=== PATIENT | male | born 1975 | race Caucasian/White ===

== ENCOUNTER 2018-01-11 14:44 | Emergency (ER) | payer MEDICAID ==
[~2018-01-11] VITALS: Ht 185.4 cm; Wt 54.0 kg
[~2018-01-11 14:44] MED LIST: CLON-527 PO; COU5T PO; DICY10CA88 PO; DOXE50CA4 PO; GABA300C PO; HYDR-4353 PO; LEVA15HF4 IH; MONT10TA21 PO; PANT-47 PO; PHEN100C12 PO; PROC-8 PO
[2018-01-11 15:09] VITALS: BP 128/96
[2018-01-11 15:37] LABS: BASOPHILS % (AUTO) 1.1 % (0-1); EOSINOPHILS # (AUTO) 0.1 X10'3 (0-0.9); EOSINOPHILS % (AUTO) 1.6 % (0-6); HEMATOCRIT 43.9 % (42.0-52.0); HEMOGLOBIN 14.8 g/dl (14.0-17.9); LYMPHOCYTES # (AUTO) 1.6 X10'3 (1.1-4.8); LYMPHOCYTES % (AUTO) 44.1 % (21-51); MEAN CORPUSCULAR HEMOGLOBIN 32.7 PG (27.0-31.0); MEAN CORPUSCULAR HGB CONC 33.8 % (33.0-36.5); MEAN CORPUSCULAR VOLUME 96.8 FL (78-98); MEAN PLATELET VOLUME 7.9 FL (7.4-10.4); MONOCYTES # (AUTO) 0.3 X10'3 (0-0.9); MONOCYTES % (AUTO) 8.6 % (2-12); NEUTROPHILS # (AUTO) 1.6 X10'3 (1.8-7.7); NEUTROPHILS % (AUTO) 44.6 % (42-75); PLATELET COUNT 78 X10'3 (140-440); RED BLOOD COUNT 4.54 X10'6 (4.70-6.10); RED CELL DISTRIBUTION WIDTH 12.6 % (11.5-14.5); WHITE BLOOD COUNT 3.6 X10'3 (4.5-11.0)
[2018-01-11 15:41] LABS: CLARITY,URINE CLEAR (Clear); COLOR,URINE YELLOW (Yellow); GLUCOSE, URINE NEGATIVE (Neg); KETONES,URINE TRACE mg/dl (Neg); LEUKOCYTE ESTERASE ,URINE NEGATIVE (Neg); NITRITES, URINE NEGATIVE (Neg); OCCULT BLOOD,URINE NEGATIVE (Neg); PH,URINE 5.5 (4.8-8.0); PROTEIN,URINE TRACE mg/dl (Neg); UA COLLECTION TYPE CLN CATCH MIDSTREAM; UROBILINOGEN,URINE 0.2 E.U/dL (0.2-1.0)
[2018-01-11 15:52] LABS: ALANINE AMINOTRANSFERASE 76 U/L (12-78); ALBUMIN 3.7 G/DL (3.4-5.0); ALBUMIN/GLOBULIN RATIO 0.8 (1.1-1.5); ALKALINE PHOSPHATASE 98 IU/L (46-116); ANION GAP 12 (8-16); ASPARTATE AMINO TRANSFERASE 217 U/L (10-37); BILIRUBIN,TOTAL 0.4 MG/DL (0.1-1.0); BLOOD UREA NITROGEN 3 MG/DL (7-18); CALCIUM 8.3 MG/DL (8.5-10.1); CHLORIDE 97 MMOL/L (99-107); GLUCOSE 92 MG/DL (70-104); POTASSIUM 4.1 MMOL/L (3.5-5.1); SODIUM 135 MMOL/L (135-145); TOTAL CARBON DIOXIDE 25.7 MMOL/L (24-32); TOTAL PROTEIN 8.2 G/DL (6.4-8.2)
[2018-01-11 15:53] LABS: URINE AMPHETAMINE SCREEN NEGATIVE (Neg); URINE BARBITUATE SCREEN NEGATIVE (Neg); URINE BENZODIAZEPINES SCREEN NEGATIVE (Neg); URINE CANNABINOID SCREEN POSITIVE (Neg); URINE COCAINE SCREEN NEGATIVE (Neg); URINE METHADONE SCREEN NEGATIVE (Neg); URINE OPIATE SCREEN NEGATIVE (Neg); URINE PHENCYCLIDINE SCREEN NEGATIVE (Neg)
[2018-01-11 15:55] LABS: TROPONIN I < 0.04 NG/ML (0.0-0.05)
[2018-01-11 16:02] LABS: BACTERIA,URINE NONE SEEN /HPF (Neg); MUCUS STRANDS FEW /LPF (Neg); RBC,URINE NONE SEEN /HPF (0-2); SQUAMOUS EPITHELIAL CELL,UR NONE SEEN /LPF (FEW); WBC,URINE NONE SEEN /HPF (0-4)
[2018-01-11 16:06] LABS: BUN/CREATININE RATIO 4.5 (5.4-32.0); CREATININE 0.66 MG/DL (0.60-1.10); eGFR > 90 ML/MIN
[2018-01-11] MEDS ORDERED: iohexol 300mg/ml 100ml inj. ONE (16:09)
[2018-01-11 16:24] LABS: TOTAL CELLS COUNTED 100
[2018-01-11 16:25] LABS: PLATELET ESTIMATE DECREASED; TOXIC GRANULATION 1+
== END 2018-01-11 17:22 | disposition home or self-care (01) ==
LOC: ER 14:44
DX: S30.1XXA Contusion of abdominal wall, initial encounter (principal); S20.212A Contusion of left front wall of thorax, initial encounter; M25.551 Pain in right hip; G89.29 Other chronic pain; F12.90 Cannabis use, unspecified, uncomplicated; Z91.018 Allergy to other foods; Z79.899 Other long term (current) drug therapy; Z79.02 Long term (current) use of antithrombotics/antiplatelets; X58.XXXA Exposure to other specified factors, initial encounter; Y93.89 Activity, other specified; Y92.89 Other specified places as the place of occurrence of the external cause; Y99.8 Other external cause status
CPT/HCPCS: 36415; 71045; 71260; 73502; 74177; 80053; 80305; 80320; 81001; 84484; 85007; 85025; 99285; Q9967

== ENCOUNTER 2018-04-17 14:50 | Emergency (ER) | payer MEDICAID ==
[~2018-04-17] VITALS: Ht 177.8 cm; Wt 54.0 kg
[2018-04-17] MEDS ORDERED: normal saline 1000ML IV soln IVB ONE (15:15)
[2018-04-17] MEDS ORDERED: ipratropium/albuterol 3ml nebule NEB ONE (15:15)
[2018-04-17] MEDS ORDERED: methylPREDNISolone sod succ 125mg/2ml vial IV ONE (15:15)
[2018-04-17 16:07] LABS: BASOPHILS # (AUTO) 0.1 X10'3 (0-0.2); BASOPHILS % (AUTO) 1.7 % (0-1); EOSINOPHILS # (AUTO) 0.1 X10'3 (0-0.9); EOSINOPHILS % (AUTO) 2.4 % (0-6); HEMATOCRIT 42.7 % (42.0-52.0); HEMOGLOBIN 14.5 g/dl (14.0-17.9); LYMPHOCYTES # (AUTO) 1.5 X10'3 (1.1-4.8); LYMPHOCYTES % (AUTO) 44.9 % (21-51); MEAN CORPUSCULAR HEMOGLOBIN 32.2 PG (27.0-31.0); MEAN CORPUSCULAR VOLUME 94.8 FL (78-98); MEAN PLATELET VOLUME 8.5 FL (7.4-10.4); MONOCYTES # (AUTO) 0.5 X10'3 (0-0.9); MONOCYTES % (AUTO) 15.2 % (2-12); NEUTROPHILS # (AUTO) 1.2 X10'3 (1.8-7.7); NEUTROPHILS % (AUTO) 35.8 % (42-75); PLATELET COUNT 73 X10'3 (140-440); RED BLOOD COUNT 4.51 X10'6 (4.70-6.10); RED CELL DISTRIBUTION WIDTH 13.2 % (11.5-14.5); WHITE BLOOD COUNT 3.3 X10'3 (4.5-11.0)
[2018-04-17 17:22] LABS: ALANINE AMINOTRANSFERASE 44 U/L (12-78); ALBUMIN 3.5 G/DL (3.4-5.0); ALBUMIN/GLOBULIN RATIO 0.7 (1.1-1.5); ALKALINE PHOSPHATASE 115 IU/L (46-116); ANION GAP 16 (8-16); ASPARTATE AMINO TRANSFERASE 117 U/L (10-37); BILIRUBIN,TOTAL 0.6 MG/DL (0.1-1.0); BLOOD UREA NITROGEN 3 MG/DL (7-18); BUN/CREATININE RATIO 5.3 (5.4-32.0); CALCIUM 8.6 MG/DL (8.5-10.1); CHLORIDE 96 MMOL/L (99-107); CREATININE 0.57 MG/DL (0.60-1.10); GLUCOSE 85 MG/DL (70-104); POTASSIUM 4.2 MMOL/L (3.5-5.1); SODIUM 136 MMOL/L (135-145); TOTAL CARBON DIOXIDE 23.7 MMOL/L (24-32); TOTAL PROTEIN 8.3 G/DL (6.4-8.2); eGFR > 90 ML/MIN
[2018-04-17] MEDS ORDERED: PRED20TA PO (19:00)
[2018-04-17] MEDS ORDERED: AZIT250T2 PO (19:00)
[2018-04-17] MEDS ORDERED: TOBR5DRO2 EACHEYE (19:00)
[2018-04-17] MEDS ORDERED: ALBU6.7H INH (19:00)
[2018-04-17 19:18] VITALS: BP 119/63
== END 2018-04-17 19:20 | disposition home or self-care (01) ==
LOC: ER 14:51
DX: F10.920 Alcohol use, unspecified with intoxication, uncomplicated (principal); H10.9 Unspecified conjunctivitis; R05 Cough; R09.3 Abnormal sputum; G89.29 Other chronic pain; F17.200 Nicotine dependence, unspecified, uncomplicated; F12.90 Cannabis use, unspecified, uncomplicated
CPT/HCPCS: 36415; 71046; 80053; 84484; 85025; 99284

== ENCOUNTER 2018-04-27 23:01 | Inpatient (IN) | payer MEDICAID ==
[~2018-04-27] VITALS: Ht 182.9 cm; Wt 49.2 kg
[~2018-04-27 23:01] MED LIST changes: +ALBU6.7H INH; +LORazepam 2 mg/ml vial IV ONE; +TOBR5DRO2 EACHEYE
[2018-04-27] MEDS ORDERED: LORazepam 2 mg/ml vial IV ONE ×2 (23:10)
[2018-04-27] MEDS ORDERED: normal saline 1000ML IV soln IVB ONE ×2 (23:30)
--- NOTE | 2018-04-27 23:43 | NUR ---
pt attempted twice to urinate in urinal. attempts failed. spoke to dr gonsales about situation. order for straight cath received
[2018-04-27 23:50] LABS: ALANINE AMINOTRANSFERASE 56 U/L (12-78); ALBUMIN 3.5 G/DL (3.4-5.0); ALBUMIN/GLOBULIN RATIO 0.8 (1.1-1.5); ALKALINE PHOSPHATASE 110 IU/L (46-116); ANION GAP 23 (8-16); ASPARTATE AMINO TRANSFERASE 117 U/L (10-37); BILIRUBIN,TOTAL 1.2 MG/DL (0.1-1.0); BLOOD UREA NITROGEN 6 MG/DL (7-18); BUN/CREATININE RATIO 5.2 (5.4-32.0); CALCIUM 9.2 MG/DL (8.5-10.1); CHLORIDE 86 MMOL/L (99-107); CREATININE 1.15 MG/DL (0.60-1.10); ETHANOL < 0.010 GM/DL (0.0-0.010); GLUCOSE 182 MG/DL (70-104); PHENYTOIN (DILANTIN) 1.9 UG/ML (10.0-20.0); POTASSIUM 3.3 MMOL/L (3.5-5.1); SODIUM 125 MMOL/L (135-145); TOTAL CARBON DIOXIDE 15.6 MMOL/L (24-32); TOTAL PROTEIN 7.9 G/DL (6.4-8.2); eGFR 69 ML/MIN
--- NOTE | 2018-04-27 23:53 | NUR ---
DUE TO PTS CONTINUED AND PROLONGED ALOC, STRAIGHT CATH OBTAINED
[2018-04-28 00:09] LABS: BASOPHILS # (AUTO) 0.1 X10'3 (0-0.2); BASOPHILS % (AUTO) 0.6 % (0-1); EOSINOPHILS % (AUTO) 0.1 % (0-6); HEMATOCRIT 41.2 % (42.0-52.0); HEMOGLOBIN 13.3 g/dl (14.0-17.9); LYMPHOCYTES # (AUTO) 3.3 X10'3 (1.1-4.8); MEAN CORPUSCULAR HEMOGLOBIN 32.1 PG (27.0-31.0); MEAN CORPUSCULAR HGB CONC 32.4 g/dL (33.0-36.5); MEAN CORPUSCULAR VOLUME 99.2 FL (78-98); MEAN PLATELET VOLUME 10.2 FL (7.4-10.4); MONOCYTES # (AUTO) 2.1 X10'3 (0-0.9); MONOCYTES % (AUTO) 15.5 % (2-12); NEUTROPHILS # (AUTO) 8.3 X10'3 (1.8-7.7); NEUTROPHILS % (AUTO) 59.8 % (42-75); PLATELET COUNT 91 X10'3 (140-440); RED BLOOD COUNT 4.16 X10'6 (4.70-6.10); RED CELL DISTRIBUTION WIDTH 13.2 % (11.5-14.5); WHITE BLOOD COUNT 13.9 X10'3 (4.5-11.0)
[2018-04-28 00:18] LABS: URINE AMPHETAMINE SCREEN NEGATIVE (Neg); URINE BARBITUATE SCREEN NEGATIVE (Neg); URINE BENZODIAZEPINES SCREEN NEGATIVE (Neg); URINE CANNABINOID SCREEN NEGATIVE (Neg); URINE COCAINE SCREEN NEGATIVE (Neg); URINE METHADONE SCREEN NEGATIVE (Neg); URINE OPIATE SCREEN NEGATIVE (Neg); URINE PHENCYCLIDINE SCREEN NEGATIVE (Neg)
[2018-04-28] MEDS ORDERED: NORMAL SALINE IV ONE (01:05)
[2018-04-28] MEDS ORDERED: PHENYTOIN SOD IV ONE (01:05)
--- NOTE | 2018-04-28 01:53 | NUR ---
PT REFUSED TO URINATE IN URINAL AND SOILED HIS CLOTHES.
[2018-04-28] MEDS ORDERED: LORazepam 2 mg/ml vial IV STA ×2 (02:06→04:48)
--- NOTE | 2018-04-28 02:06 | NUR ---
DR DAVID REASSESSED PT. STILL ACTING INAPPROPRIATE AND NOT ANSWERING QUESTIONS APPROPRIATELY. VERBAL FOR ATIVAN 1MG RECEIVED
--- NOTE | 2018-04-28 02:54 | NUR ---
RIGHT AFTER CLEANING UP, AND CHANGING PT WHITH NEW LINEN AND CLOTHES. I WALKED IN TO SEE PT URINATING IN THE AIR TRYING TO CATCH URIN WITH URINAL.
[2018-04-28 02:57] LABS: PLATELET ESTIMATE DECREASED; TOTAL CELLS COUNTED 100
[2018-04-28 02:58] LABS: LARGE PLATELETS FEW
--- NOTE | 2018-04-28 03:21 | NUR ---
PT REFUSING VITALS, STATING "FUCK YOU GET OUT OF MY ROOM." SECURITY CALLED FOR STANDBY. PT GOT BACK INTO BED UNDER OWN POWER
--- NOTE | 2018-04-28 03:47 | NUR ---
PT FOUND WANDERING HIS ROOM WITH AN UNSTEADY GAIT. PT HAD PULLED OUT HIS THIRD IV AND WOULD NOT FOLLOW VRBAL CUES. VERBAL FROM DR DAVID TO RESTRAIN IF NEEDED. IV REINITIATED
--- NOTE | 2018-04-28 04:36 | NUR ---
SPOKE TO DR DAVID ABOUT INCREASING HR AND POSSIBLE NEED FOR PRN ATIVAN. STATED SHE NEEDS TO REEVALUATE PTS TONGUE DUE TO POSSIBLE AIRWAY ISSUES PRIOR TO THAT ORDER
[2018-04-28] MEDS ORDERED: metoprolol tartrate 1mg/ml inj IV ONE (06:05)
[2018-04-28] MEDS ORDERED: potassium Cl 40MEQ/NS 500ml 500 ML IV PRN ×2 (06:05)
[2018-04-28] MEDS ORDERED: acetaminophen 325mg tablet PO PRN ×2 (06:05)
[2018-04-28] MEDS: K, MAG and/or Phos replacement - Verify level? MC SCH ×2 (06:05→08:00)
[2018-04-28] MEDS ORDERED: ondansetron/PF 4mg/2ml inj IV PRN (06:05)
[2018-04-28] MEDS ORDERED: magnesium hydroxide 30ml (MOM) UD suspension PO PRN (06:05)
[2018-04-28] MEDS ORDERED: dextrose 50%-water 50ml dispensing syringe IV PRN (06:15)
[2018-04-28] MEDS ORDERED: haloperidol 5mg tablet PO PRN (06:15)
[2018-04-28] MEDS ORDERED: thiamine inj. 100 MG in normal saline 100ml IV soln 100 ML IV ONE (06:15)
--- NOTE | 2018-04-28 06:15 | NUR ---
PT ASKING FOR MY LAST NAME, SO "I CAN MURDER YOU."
[2018-04-28] MEDS: normal saline 1000ml 1,000 ML IV SCH ×2 (06:50→20:28)
[2018-04-28] MEDS: LORazepam 2 mg/ml vial IV PRN ×6 (06:50→20:28)
[2018-04-28] MEDS: pantoprazole 40 MG vial IV SCH (07:23)
--- NOTE | 2018-04-28 07:46 | NUR ---
patient is having increased aggitation since having his restrains removed. we will attempt softer medical restraints on his upper arms
--- NOTE | 2018-04-28 07:50 | NUR ---
no order for soft restraints. patient will be given another dose of ativan to see if that helps with aggitation
[2018-04-28] MEDS ORDERED: heparin, porcine 5000 units/ml vial SQ SCH (08:00)
--- NOTE | 2018-04-28 08:25 | NUR ---
Patient is still aggitated, talking very rappidly, and acting like he is smokin his finger. Patient is requesting some beer. Patient was given IM haldol to try and help current symptoms.
[2018-04-28] MEDS: haloperidol lactate 5mg/ml inj IM PRN ×3 (08:29→20:29)
[2018-04-28] MEDS: phenytoin sod 50mg/ml 2ml vial IV SCH ×2 (09:01→16:11)
--- NOTE | 2018-04-28 10:30 | NUR ---
patients linens cleaned and replaced. patient given drink of water. Patient is still trying to "smoke his finger". He is in no distress. patient is needing frequent redirection
--- NOTE | 2018-04-28 10:49 | NUR ---
Pt resting in bed. Full bed change performed. Patient disoriented and appears to attempt to smoke an imaginary cigarrete. Patient continues to request beer. Patient in and out of sleep in bed, snoring loudly while asleep.
[2018-04-28] MEDS: morphine 4 MG/ML inj SYRINge IV PRN (12:40)
--- NOTE | 2018-04-28 13:11 | NUR ---
full bed linen change and partial bath; patient speaking incomprehensible sounds,swinging arms; attempted to help with urinal twice; pt not following commands, shaking slightly: haldol to be given
--- NOTE | 2018-04-28 13:54 | NUR ---
Cha catheter inserted. Patient's mother and little sister in the room now. Patient still restless.
--- NOTE | 2018-04-28 14:54 | NUR ---
CALLED ABRAHAN JASSO TO SEE IF PATIENT COULD GO TO PCU WITH A SITTER; PER LOUISA, SHE SPOKE WITH DR FORBES ABOUT THIS PATIENT EARLIER AND DR FORBES WOULD LIKE THE PATIENT TO GO TO ICU
--- NOTE | 2018-04-28 16:19 | NUR ---
mother at bedside, wants to speak to a doctor, updated Mother, ER MD not available to come to bedside
--- NOTE | 2018-04-28 20:02 | NUR ---
CALL TO BICYCLE II ASSEMBLER DITCHING MACHINE ENGINEER 2ND TO ICU ADMIT STATUS, AND PT.'S CONDITION MAY NOW MEET PCU. PRIMARY RN "DEMETRIS" SPOKE WITH CRISPIN CANO. ADMIT STATUS CHANGED TO PCU WITH A SITTER.
--- NOTE | 2018-04-28 20:05 | NUR ---
TALKED TO THALIA CANO REGARDING PATIENT'S ADMISSION STATUS: PER Vickie CANO OK TO CHANGE ADMISSION STATUS TO PCU WITH A SITTER. DISCUSSED WITH Teresa CANO THE FACT THAT THE PATIENT IS STILL HAVING SMALL AMOUNTS OF BLOOD OOZING FROM HIS EXTREMELY SWOLLEN TONGUE AND HIS PLATELETS ARE 91: ORDER TO DISCONTINUE SQ HEPARIN
--- NOTE | 2018-04-28 20:20 | NUR ---
PHONE REPORT TO JOE RN AND CAROLE HARRINGTON PATIENT WITH ALL BELONGINGS ON MONITOR WITH RN TO ROOM 2312I
--- NOTE | 2018-04-28 20:34 | NUR ---
ZEHRA RN TRANSFERED PATIENT TO PCU ON MONITOR; PATIENT'S ONLY BELONGINGS WERE SOCKS
[2018-04-28 21:20] VITALS: BP 80/54
--- NOTE | 2018-04-28 21:30 | NUR ---
Patient arrived on floor via gurney from ED after receiving report from Peyton HARRINGTON. Patient transferred to hospital bed with use of slide board. Patient is awake but unable to follow commands, speech is slurred and unintelligible. Vitals taken, placed on library monitor, patient has go catheter that was placed in the ED, drainage is de red in color some small clots observed. NS infusing @ 75ml/hr. Patient is in adult diaper, this was removed at this time. 2 RN skin check done, patient has bruising over back legs and arms, no open wounds. Patient is drowsy but easily arousable. Belongings accompanied. Unable to preform DART at this time, patient is unable to communicate effectively and unwilling to participate in process.
[2018-04-29] MEDS: phenytoin sod 50mg/ml 2ml vial IV SCH ×3 (00:20→15:47)
[2018-04-29 00:58] LABS: ALANINE AMINOTRANSFERASE 42 U/L (12-78); ALBUMIN 3.3 G/DL (3.4-5.0); ALBUMIN/GLOBULIN RATIO 0.8 (1.1-1.5); ALKALINE PHOSPHATASE 75 IU/L (46-116); ANION GAP 15 (8-16); ASPARTATE AMINO TRANSFERASE 76 U/L (10-37); BILIRUBIN,TOTAL 1.3 MG/DL (0.1-1.0); BLOOD UREA NITROGEN 9 MG/DL (7-18); BUN/CREATININE RATIO 11.4 (5.4-32.0); CALCIUM 8.6 MG/DL (8.5-10.1); CHLORIDE 92 MMOL/L (99-107); CREATININE 0.79 MG/DL (0.60-1.10); GLUCOSE 68 MG/DL (70-104); POTASSIUM 3.7 MMOL/L (3.5-5.1); SODIUM 130 MMOL/L (135-145); TOTAL PROTEIN 7.6 G/DL (6.4-8.2); eGFR > 90 ML/MIN
[2018-04-29 01:38] LABS: BASOPHILS % (AUTO) 0.5 % (0-1); EOSINOPHILS % (AUTO) 0 % (0-6); LYMPHOCYTES # (AUTO) 1.3 X10'3 (1.1-4.8); LYMPHOCYTES % (AUTO) 12.5 % (21-51); MONOCYTES # (AUTO) 1.2 X10'3 (0-0.9); MONOCYTES % (AUTO) 12.1 % (2-12); NEUTROPHILS # (AUTO) 7.6 X10'3 (1.8-7.7); NEUTROPHILS % (AUTO) 74.9 % (42-75)
[2018-04-29 02:10] LABS: GIANT PLATELET FEW; PLATELET ESTIMATE DECREASED
[2018-04-29 03:00] VITALS: BP 118/93
--- NOTE | 2018-04-29 04:30 | NUR ---
Patient's bedside glucose is 60, given 50ml of D50 at this time rechecked blood sugar 175 Contacted Jeff Ramirez, ordered IVF to be changed to D5 1/2 NS @ 75ml/hr Will continue to monitor closely
[2018-04-29] MEDS: LORazepam 2 mg/ml vial IV PRN (04:46)
[2018-04-29] MEDS: dextrose 5%-1/2 normal saline 1,000 ML IV SCH ×2 (04:59→17:58)
[2018-04-29 06:00] VITALS: BP 109/74
--- NOTE | 2018-04-29 06:15 | NUR ---
Patient in room PCU 3012. I have received report from Arian HARRINGTON and Betito HARRINGTON and had the opportunity to ask questions and assume patient care.
--- NOTE | 2018-04-29 06:49 | NUR ---
Problems reprioritized. Patient report given, questions answered & plan of care reviewed with Atul RN.
[2018-04-29] MEDS: K, MAG and/or Phos replacement - Verify level? MC SCH (08:30)
[2018-04-29] MEDS: pantoprazole 40 MG vial IV SCH (08:37)
[2018-04-29 09:36] LABS: HEMATOCRIT 39.9 % (42.0-52.0); HEMOGLOBIN 13.1 g/dl (14.0-17.9); WHITE BLOOD COUNT 10.2 X10'3 (4.5-11.0)
[2018-04-29 09:38] LABS: MEAN CORPUSCULAR HEMOGLOBIN 31.9 PG (27.0-31.0); MEAN CORPUSCULAR HGB CONC 32.8 g/dL (33.0-36.5); MEAN CORPUSCULAR VOLUME 97.4 FL (78-98); PLATELET COUNT 69 X10'3 (140-440); RED CELL DISTRIBUTION WIDTH 13.2 % (11.5-14.5)
[2018-04-29 09:39] LABS: MEAN PLATELET VOLUME 10.9 FL (7.4-10.4)
[2018-04-29 11:00] VITALS: BP 126/97
--- NOTE | 2018-04-29 11:27 | NUR ---
PAGED PICC FOR PIV.
[2018-04-29] MEDS: morphine 4 MG/ML inj SYRINge IV PRN ×3 (12:07→21:14)
[2018-04-29 15:00] VITALS: BP 149/98
--- NOTE | 2018-04-29 18:15 | NUR ---
Problems reprioritized. Patient report given, questions answered & plan of care reviewed with Arian HARRINGTON.
--- NOTE | 2018-04-29 18:32 | NUR ---
ENGINE ASSEMBLERoil dispenser: I have reviewed and agree with all interventions, assessments performed and documented by LEN BRONSON.
--- NOTE | 2018-04-29 18:35 | NUR ---
Problems reprioritized. Patient report given, questions answered & plan of care reviewed with LEN TELLO.
[2018-04-29 19:00] VITALS: BP 130/98
[2018-04-29] MEDS: doxepin 25mg capsule PO SCH (21:00)
[2018-04-29] MEDS: nicotine 14mg patch - 24hr TD SCH (21:18)
[2018-04-29] MEDS: gabapentin 300mg capsule PO SCH (22:35)
[2018-04-29] MEDS: dicyclomine 10 MG capsule PO SCH (22:35)
[2018-04-29] MEDS: albuterol 2.5 MG/3 ML nebule NEB SCH (22:35)
[2018-04-29 23:00] VITALS: BP 136/97
[2018-04-30] MEDS: phenytoin sod 50mg/ml 2ml vial IV SCH ×2 (00:53→08:00)
[2018-04-30 03:00] VITALS: BP 129/91
[2018-04-30 06:00] VITALS: BP 147/97
[2018-04-30 06:00] LABS: BASOPHILS # (AUTO) 0.1 X10'3 (0-0.2); EOSINOPHILS # (AUTO) 0.1 X10'3 (0-0.9); EOSINOPHILS % (AUTO) 0.9 % (0-6); HEMATOCRIT 31.1 % (42.0-52.0); HEMOGLOBIN 10.9 g/dl (14.0-17.9); LYMPHOCYTES # (AUTO) 1.1 X10'3 (1.1-4.8); LYMPHOCYTES % (AUTO) 20.3 % (21-51); MEAN CORPUSCULAR HEMOGLOBIN 33.2 PG (27.0-31.0); MEAN CORPUSCULAR HGB CONC 35.2 g/dL (33.0-36.5); MEAN CORPUSCULAR VOLUME 94.2 FL (78-98); MEAN PLATELET VOLUME 9.4 FL (7.4-10.4); NEUTROPHILS # (AUTO) 3.3 X10'3 (1.8-7.7); NEUTROPHILS % (AUTO) 59.8 % (42-75); PLATELET COUNT 93 X10'3 (140-440); RED CELL DISTRIBUTION WIDTH 12.8 % (11.5-14.5); WHITE BLOOD COUNT 5.5 X10'3 (4.5-11.0)
[2018-04-30 06:23] LABS: ALANINE AMINOTRANSFERASE 36 U/L (12-78); ALBUMIN 2.5 G/DL (3.4-5.0); ALBUMIN/GLOBULIN RATIO 0.7 (1.1-1.5); ALKALINE PHOSPHATASE 63 IU/L (46-116); ANION GAP 9 (8-16); ASPARTATE AMINO TRANSFERASE 81 U/L (10-37); BLOOD UREA NITROGEN 4 MG/DL (7-18); BUN/CREATININE RATIO 8.5 (5.4-32.0); CALCIUM 8.1 MG/DL (8.5-10.1); CHLORIDE 94 MMOL/L (99-107); CREATININE 0.47 MG/DL (0.60-1.10); GLUCOSE 109 MG/DL (70-104); SODIUM 128 MMOL/L (135-145); TOTAL PROTEIN 6.3 G/DL (6.4-8.2); eGFR > 90 ML/MIN
[2018-04-30 06:38] LABS: POTASSIUM 2.5 MMOL/L (3.5-5.1)
--- NOTE | 2018-04-30 06:49 | NUR ---
Patient in room PCU 3012. I have received report from LEN TELLO and had the opportunity to ask questions and assume patient care.
[2018-04-30] MEDS ORDERED: sodium phosphate inj. 15 MMOL in dextrose 5%-water 150 ML IV PRN (07:10)
[2018-04-30] MEDS ORDERED: potassium Cl 20 mEq SR tablet PO PRN ×4 (07:10)
[2018-04-30] MEDS ORDERED: magnesium 4gm in 100ml NS 100 ML IV PRN (07:10)
[2018-04-30] MEDS ORDERED: Neutra Phos packet PO PRN (07:10)
[2018-04-30] MEDS ORDERED: potassium Cl 40MEQ/NS 500ml 500 ML IV PRN ×4 (07:10)
[2018-04-30] MEDS ORDERED: sodium phosphate inj. 30 MMOL in dextrose 5%-water 250 ML IV PRN (07:10)
[2018-04-30] MEDS ORDERED: magnesium 2GM in 50ml NS 50 ML IV PRN (07:10)
[2018-04-30] MEDS: dextrose 5%-1/2 normal saline 1,000 ML IV SCH ×2 (07:35→13:08)
[2018-04-30] MEDS: dicyclomine 10 MG capsule PO SCH ×3 (07:52→21:25)
[2018-04-30] MEDS: phenytoin sod ER 100mg capsule PO SCH (07:53)
[2018-04-30] MEDS: gabapentin 300mg capsule PO SCH ×3 (07:54→21:25)
[2018-04-30] MEDS: pantoprazole 40mg Tablet.DR PO SCH (07:54)
[2018-04-30] MEDS: nicotine 14mg patch - 24hr TD SCH (07:55)
[2018-04-30] MEDS: montelukast 10mg tablet PO SCH (07:55)
[2018-04-30] MEDS ORDERED: clonazePAM 1mg tablet PO SCH (08:00)
[2018-04-30] MEDS: K, MAG and/or Phos replacement - Verify level? MC SCH (08:00)
[2018-04-30] MEDS ORDERED: warfarin 5mg tablet PO SCH ×2 (08:00→21:00)
[2018-04-30] MEDS: morphine 4 MG/ML inj SYRINge IV PRN ×2 (08:06→21:51)
[2018-04-30 08:07] LABS: MAGNESIUM 1.2 MG/DL (1.5-2.4); PHOSPHORUS 2.6 MG/DL (2.3-4.5)
[2018-04-30] MEDS: LIDOcaine 1% 30ml vial 5 ML in potassium Cl 40MEQ/NS 500ml 500 ML IV PRN ×2 (09:00→13:05)
[2018-04-30] MEDS: magnesium Cl slow-release 64mg tablet PO PRN (09:51)
[2018-04-30] MEDS ORDERED: FLU VACC QUAD 2018(5 YR UP)/PF 60 MCG/0.5 ML SYRINGE IM ONE (10:00)
[2018-04-30 11:00] VITALS: BP 142/84
[2018-04-30] MEDS ORDERED: pneumococcal 23-VAL P-sac vacc 25 mcg/0.5ml vial IMVAC ONE (11:00)
--- NOTE | 2018-04-30 14:10 | NUR ---
SANDOR VEGA, LOULOU CASTRO. URINAL INSTRUCTIONS GIVEN. VERBALIZED UNDERSTANDING.
[2018-04-30 15:00] VITALS: BP 130/95
[2018-04-30] MEDS: albuterol 2.5 MG/3 ML nebule NEB SCH (15:00)
--- NOTE | 2018-04-30 18:20 | NUR ---
Problems reprioritized. Patient report given, questions answered & plan of care reviewed with lita slade.
--- NOTE | 2018-04-30 18:22 | NUR ---
Student documentation: I have reviewed and agree with all interventions, assessments performed and documented by LEN FUNG.
[2018-04-30 19:00] VITALS: BP 145/102
[2018-04-30] MEDS: doxepin 25mg capsule PO SCH (21:25)
[2018-04-30 23:00] VITALS: BP 153/102
[2018-05-01] MEDS: albuterol 2.5 MG/3 ML nebule NEB SCH ×9 (02:40→20:13)
[2018-05-01 03:00] VITALS: BP 131/91
[2018-05-01 06:00] VITALS: BP 125/98
[2018-05-01 06:05] LABS: BASOPHILS # (AUTO) 0.1 X10'3 (0-0.2); BASOPHILS % (AUTO) 1.8 % (0-1); EOSINOPHILS % (AUTO) 1.1 % (0-6); HEMATOCRIT 32.2 % (42.0-52.0); HEMOGLOBIN 10.9 g/dl (14.0-17.9); MEAN CORPUSCULAR HEMOGLOBIN 32.4 PG (27.0-31.0); MEAN CORPUSCULAR HGB CONC 33.7 g/dL (33.0-36.5); MEAN CORPUSCULAR VOLUME 96.2 FL (78-98); MONOCYTES % (AUTO) 24.8 % (2-12); NEUTROPHILS % (AUTO) 48.3 % (42-75); PLATELET COUNT 119 X10'3 (140-440); RED BLOOD COUNT 3.35 X10'6 (4.70-6.10); RED CELL DISTRIBUTION WIDTH 12.7 % (11.5-14.5); WHITE BLOOD COUNT 4.1 X10'3 (4.5-11.0)
[2018-05-01 06:17] LABS: PROTHROMBIN TIME 10.2 SECONDS (9.0-12.0)
[2018-05-01 06:23] LABS: ALANINE AMINOTRANSFERASE 40 U/L (12-78); ALBUMIN 2.5 G/DL (3.4-5.0); ALBUMIN/GLOBULIN RATIO 0.6 (1.1-1.5); ALKALINE PHOSPHATASE 60 IU/L (46-116); ANION GAP 10 (8-16); ASPARTATE AMINO TRANSFERASE 100 U/L (10-37); BILIRUBIN,TOTAL 0.8 MG/DL (0.1-1.0); BLOOD UREA NITROGEN 3 MG/DL (7-18); BUN/CREATININE RATIO 5.8 (5.4-32.0); CALCIUM 8.6 MG/DL (8.5-10.1); CHLORIDE 101 MMOL/L (99-107); CREATININE 0.52 MG/DL (0.60-1.10); GLUCOSE 92 MG/DL (70-104); MAGNESIUM 1.4 MG/DL (1.5-2.4); PHENYTOIN (DILANTIN) 5.1 UG/ML (10.0-20.0); PHOSPHORUS 2.1 MG/DL (2.3-4.5); POTASSIUM 3.1 MMOL/L (3.5-5.1); SODIUM 137 MMOL/L (135-145); TOTAL CARBON DIOXIDE 26.3 MMOL/L (24-32); TOTAL PROTEIN 6.4 G/DL (6.4-8.2); eGFR > 90 ML/MIN
[2018-05-01] MEDS: pantoprazole 40mg Tablet.DR PO SCH (07:49)
[2018-05-01] MEDS: nicotine 14mg patch - 24hr TD SCH (07:49)
[2018-05-01] MEDS: magnesium Cl slow-release 64mg tablet PO PRN (07:49)
[2018-05-01] MEDS: dicyclomine 10 MG capsule PO SCH ×3 (07:50→21:54)
[2018-05-01] MEDS: montelukast 10mg tablet PO SCH (07:50)
[2018-05-01] MEDS: gabapentin 300mg capsule PO SCH ×3 (07:50→21:53)
[2018-05-01] MEDS: phenytoin sod ER 100mg capsule PO SCH (07:50)
[2018-05-01] MEDS: K, MAG and/or Phos replacement - Verify level? MC SCH (08:00)
[2018-05-01 12:43] VITALS: BP 131/88
[2018-05-01] MEDS: morphine 4 MG/ML inj SYRINge IV PRN (14:40)
[2018-05-01 15:00] VITALS: BP 144/96
[2018-05-01 19:00] VITALS: BP 144/96
[2018-05-01] MEDS ORDERED: warfarin 5mg tablet PO SCH (21:00)
[2018-05-01] MEDS ORDERED: warfarin 7.5mg tablet PO ONE (21:00)
[2018-05-01] MEDS: doxepin 25mg capsule PO SCH (21:53)
[2018-05-01 23:00] VITALS: BP 136/90
[2018-05-02 03:00] VITALS: BP 123/58
[2018-05-02] MEDS: albuterol 2.5 MG/3 ML nebule NEB SCH ×3 (03:00→15:12)
[2018-05-02 05:56] LABS: BASOPHILS % (AUTO) 0.8 % (0-1); EOSINOPHILS # (AUTO) 0.1 X10'3 (0-0.9); EOSINOPHILS % (AUTO) 1.5 % (0-6); HEMATOCRIT 27.9 % (42.0-52.0); HEMOGLOBIN 9.6 g/dl (14.0-17.9); MEAN CORPUSCULAR HEMOGLOBIN 33.1 PG (27.0-31.0); MEAN CORPUSCULAR HGB CONC 34.6 g/dL (33.0-36.5); MEAN CORPUSCULAR VOLUME 95.5 FL (78-98); MEAN PLATELET VOLUME 8.1 FL (7.4-10.4); MONOCYTES # (AUTO) 1.2 X10'3 (0-0.9); MONOCYTES % (AUTO) 27.9 % (2-12); NEUTROPHILS # (AUTO) 1.9 X10'3 (1.8-7.7); NEUTROPHILS % (AUTO) 45.8 % (42-75); PLATELET COUNT 168 X10'3 (140-440); RED BLOOD COUNT 2.92 X10'6 (4.70-6.10); WHITE BLOOD COUNT 4.2 X10'3 (4.5-11.0)
[2018-05-02 06:00] LABS: ALANINE AMINOTRANSFERASE 38 U/L (12-78); ALBUMIN 2.5 G/DL (3.4-5.0); ALBUMIN/GLOBULIN RATIO 0.7 (1.1-1.5); ALKALINE PHOSPHATASE 57 IU/L (46-116); ANION GAP 7 (8-16); ASPARTATE AMINO TRANSFERASE 114 U/L (10-37); BILIRUBIN,TOTAL 0.6 MG/DL (0.1-1.0); BLOOD UREA NITROGEN 5 MG/DL (7-18); BUN/CREATININE RATIO 9.6 (5.4-32.0); CALCIUM 8.5 MG/DL (8.5-10.1); CHLORIDE 102 MMOL/L (99-107); CREATININE 0.52 MG/DL (0.60-1.10); GLUCOSE 95 MG/DL (70-104); MAGNESIUM 1.4 MG/DL (1.5-2.4); POTASSIUM 3.5 MMOL/L (3.5-5.1); SODIUM 134 MMOL/L (135-145); TOTAL CARBON DIOXIDE 24.7 MMOL/L (24-32); TOTAL PROTEIN 6.2 G/DL (6.4-8.2); eGFR > 90 ML/MIN
[2018-05-02 06:02] LABS: PROTHROMBIN TIME 10.5 SECONDS (9.0-12.0)
--- NOTE | 2018-05-02 06:31 | NUR ---
Patient in room PCU 3012. I have received report from Morris HARRINGTON and had the opportunity to ask questions and assume patient care.
--- NOTE | 2018-05-02 06:31 | NUR ---
Patient in room PCU 3012. I have received report from Dash HARRINGTON and had the opportunity to ask questions and assume patient care.
[2018-05-02 07:00] VITALS: BP 119/78
[2018-05-02] MEDS: K, MAG and/or Phos replacement - Verify level? MC SCH (08:00)
[2018-05-02] MEDS: dicyclomine 10 MG capsule PO SCH ×2 (08:46→13:42)
[2018-05-02] MEDS: nicotine 14mg patch - 24hr TD SCH (08:47)
[2018-05-02] MEDS: pantoprazole 40mg Tablet.DR PO SCH (08:48)
[2018-05-02] MEDS: gabapentin 300mg capsule PO SCH ×2 (08:48→13:38)
[2018-05-02] MEDS: magnesium Cl slow-release 64mg tablet PO PRN (08:48)
[2018-05-02] MEDS: montelukast 10mg tablet PO SCH (08:48)
[2018-05-02] MEDS: phenytoin sod ER 100mg capsule PO SCH (08:49)
[2018-05-02] MEDS: morphine 4 MG/ML inj SYRINge IV PRN (09:05)
[2018-05-02 11:00] VITALS: BP 120/87
--- NOTE | 2018-05-02 11:41 | NUR ---
PAGER ID: [phone] MESSAGE: Room 3014A Shanita. Pt going to MRI and needs heparin stopped for test. please advise. Dolores [phone]
--- NOTE | 2018-05-02 14:14 | NUR ---
promotional table spacer PAGER ID: [phone] MESSAGE: Room 3015B Neil. Critical result: Blood cx gram positive cocci with pairs and chains. Dolores [phone]
[2018-05-02] MEDS ORDERED: iohexol 350MG/ML 100ml bottle IV ONE (14:16)
[2018-05-02 15:00] VITALS: BP 147/99
--- NOTE | 2018-05-02 18:43 | NUR ---
Problems reprioritized. Patient report given, questions answered & plan of care reviewed with Deep RN. Patient stable at transfer of care.
--- NOTE | 2018-05-02 19:34 | NUR ---
Pt discharge per MD orders with all discharge and transition of care paperwork. Pt instructed to follow up with primary care physician within 1 week from today. Vitals stable upon discharge. Pt signed all discharge paperwork. Escorted to main lobby with all personal belongings by calculus tutor, awaiting Cab kaci @[phone].
[2018-05-02] MEDS ORDERED: warfarin 4mg tablet PO ONE (21:00)
== END 2018-05-02 19:00 | disposition home or self-care (01) | DRG 53 ==
LOC: ER 23:01 → ED HOLD 04-28 06:05 → PCU 3S 04-28 20:42
PROVIDERS: ADMIT Internal Medicine Critical Care Medicine; ATTEND Internal Medicine Critical Care Medicine
PROC: B32T1ZZ Computerized Tomography (CT Scan) of Left Pulmonary Artery using Low Osmolar Contrast (ICD-10-PCS; principal; 2018-05-02)
PROC: B3201ZZ Computerized Tomography (CT Scan) of Thoracic Aorta using Low Osmolar Contrast (ICD-10-PCS; 2018-05-02)
PROC: B32S1ZZ Computerized Tomography (CT Scan) of Right Pulmonary Artery using Low Osmolar Contrast (ICD-10-PCS; 2018-05-02)
DX: G40.909 Epilepsy, unspecified, not intractable, without status epilepticus (principal); E87.2 Acidosis; F10.27 Alcohol dependence with alcohol-induced persisting dementia; E87.1 Hypo-osmolality and hyponatremia; K14.9 Disease of tongue, unspecified; S00.532A Contusion of oral cavity, initial encounter; E87.6 Hypokalemia; F10.239 Alcohol dependence with withdrawal, unspecified; X58.XXXA Exposure to other specified factors, initial encounter; F12.90 Cannabis use, unspecified, uncomplicated; F41.9 Anxiety disorder, unspecified; G89.29 Other chronic pain; F17.210 Nicotine dependence, cigarettes, uncomplicated; Z78.1 Physical restraint status; Z86.711 Personal history of pulmonary embolism; Z28.21 Immunization not carried out because of patient refusal; Z91.013 Allergy to seafood; Y93.89 Activity, other specified; Y92.89 Other specified places as the place of occurrence of the external cause; Y99.8 Other external cause status; Z79.899 Other long term (current) drug therapy
CPT/HCPCS: 36415; 70450; 71275; 80053; 80185; 80305; 80320; 82948; 83735; 84100; 84132; 84295; 85025; 85610; 87070; 94640; 94760; 96365; 96375; 96376; 99285; C9113; G0378; J1165; J1630; J1644; J2060; J2270; J3411; J3480; J3490; J7030; Q2037; Q9967

== ENCOUNTER 2018-05-29 11:46 | Emergency (ER) | payer MEDICAID ==
[~2018-05-29 11:46] MED LIST changes: -CLON-527 PO; -COU5T PO; -LORazepam 2 mg/ml vial IV ONE; -PROC-8 PO; -TOBR5DRO2 EACHEYE
[2018-05-29] MEDS ORDERED: normal saline 1000ML IV soln IVB ONE (14:00)
[2018-05-29] MEDS ORDERED: levetiracetam inj 1,000 MG in normal saline 100ml IV soln 90 ML IV STA (14:02)
[2018-05-29 14:31] LABS: BASOPHILS % (AUTO) 0.8 % (0-1); EOSINOPHILS % (AUTO) 0.1 % (0-6); HEMATOCRIT 39.6 % (42.0-52.0); HEMOGLOBIN 13.1 g/dl (14.0-17.9); LYMPHOCYTES # (AUTO) 0.7 X10'3 (1.1-4.8); LYMPHOCYTES % (AUTO) 22.5 % (21-51); MEAN CORPUSCULAR HEMOGLOBIN 31.7 PG (27.0-31.0); MEAN PLATELET VOLUME 8.2 FL (7.4-10.4); MONOCYTES # (AUTO) 0.4 X10'3 (0-0.9); MONOCYTES % (AUTO) 12.8 % (2-12); NEUTROPHILS # (AUTO) 2.1 X10'3 (1.8-7.7); NEUTROPHILS % (AUTO) 63.8 % (42-75); PLATELET COUNT 69 X10'3 (140-440); RED BLOOD COUNT 4.13 X10'6 (4.70-6.10); RED CELL DISTRIBUTION WIDTH 13.7 % (11.5-14.5); WHITE BLOOD COUNT 3.2 X10'3 (4.5-11.0)
[2018-05-29 14:41] LABS: ALANINE AMINOTRANSFERASE 44 U/L (12-78); ALBUMIN/GLOBULIN RATIO 0.7 (1.1-1.5); ALKALINE PHOSPHATASE 111 IU/L (46-116); ANION GAP 12 (8-16); ASPARTATE AMINO TRANSFERASE 98 U/L (10-37); BILIRUBIN,TOTAL 0.6 MG/DL (0.1-1.0); BLOOD UREA NITROGEN 4 MG/DL (7-18); BUN/CREATININE RATIO 5.1 (5.4-32.0); CALCIUM 8.5 MG/DL (8.5-10.1); CHLORIDE 99 MMOL/L (99-107); CREATININE 0.78 MG/DL (0.60-1.10); GLUCOSE 109 MG/DL (70-104); POTASSIUM 3.6 MMOL/L (3.5-5.1); SODIUM 135 MMOL/L (135-145); TOTAL CARBON DIOXIDE 23.8 MMOL/L (24-32); TOTAL PROTEIN 7.3 G/DL (6.4-8.2); eGFR > 90 ML/MIN
[2018-05-29] MEDS ORDERED: KEP500T PO (14:46)
[2018-05-29] MEDS ORDERED: NYST1000 PO (14:46)
[2018-05-29 15:07] VITALS: BP 148/92
== END 2018-05-29 15:08 | disposition home or self-care (01) ==
LOC: ER 11:47
DX: S30.1XXA Contusion of abdominal wall, initial encounter (principal); S30.0XXA Contusion of lower back and pelvis, initial encounter; S70.11XA Contusion of right thigh, initial encounter; R56.9 Unspecified convulsions; B37.0 Candidal stomatitis; E86.0 Dehydration; G89.29 Other chronic pain; Z86.711 Personal history of pulmonary embolism; F12.90 Cannabis use, unspecified, uncomplicated; F17.210 Nicotine dependence, cigarettes, uncomplicated; Z91.013 Allergy to seafood; Z79.899 Other long term (current) drug therapy; X58.XXXA Exposure to other specified factors, initial encounter; Y93.89 Activity, other specified; Y92.89 Other specified places as the place of occurrence of the external cause; Y99.9 Unspecified external cause status
CPT/HCPCS: 36415; 71045; 80053; 82948; 85025; 96365; 99284; J1953; J7030

== ENCOUNTER 2018-06-18 11:30 | Emergency (ER) | payer MEDICAID ==
[~2018-06-18] VITALS: Ht 185.4 cm; Wt 63.0 kg
[~2018-06-18 11:30] MED LIST changes: +KEP500T PO; +NYST1000 PO
[2018-06-18 11:45] VITALS: BP 122/62
[2018-06-18] MEDS: ondansetron/PF 4mg/2ml inj IV ONE (12:25)
[2018-06-18] MEDS: phenytoin sod ER 100mg capsule PO ONE (12:25)
[2018-06-18] MEDS ORDERED: phenytoin sod 50mg/ml 2ml vial IV ONE (12:25)
[2018-06-18] MEDS: normal saline 1000ML IV soln IVB ONE (12:25)
[2018-06-18 13:28] LABS: ALANINE AMINOTRANSFERASE 46 U/L (12-78); ALBUMIN 2.9 G/DL (3.4-5.0); ALBUMIN/GLOBULIN RATIO 0.7 (1.1-1.5); ALKALINE PHOSPHATASE 130 IU/L (46-116); ANION GAP 11 (8-16); ASPARTATE AMINO TRANSFERASE 112 U/L (10-37); BILIRUBIN,TOTAL 0.6 MG/DL (0.1-1.0); BLOOD UREA NITROGEN 3 MG/DL (7-18); BUN/CREATININE RATIO 5.5 (5.4-32.0); CHLORIDE 99 MMOL/L (99-107); CREATININE 0.55 MG/DL (0.60-1.10); GLUCOSE 89 MG/DL (70-104); LIPASE 208 U/L (73-393); MAGNESIUM 1.6 MG/DL (1.5-2.4); PHENYTOIN (DILANTIN) 8.2 UG/ML (10.0-20.0); PHOSPHORUS 3.8 MG/DL (2.3-4.5); POTASSIUM 3.5 MMOL/L (3.5-5.1); SODIUM 134 MMOL/L (135-145); TOTAL CARBON DIOXIDE 23.6 MMOL/L (24-32); TOTAL PROTEIN 7.3 G/DL (6.4-8.2); eGFR > 90 ML/MIN
[2018-06-18] MEDS: phenytoin sod inj 500 MG in normal saline 100ml IV soln 90 ML IV ONE (13:32)
[2018-06-18] MEDS: magnesium 2GM in 50ml NS 50 ML IV ONE (13:32)
[2018-06-18 13:54] LABS: EOSINOPHILS % (AUTO) 0.5 % (0-6); LYMPHOCYTES # (AUTO) 1.8 X10'3 (1.1-4.8); MONOCYTES # (AUTO) 0.6 X10'3 (0-0.9); PLATELET COUNT 78 X10'3 (140-440)
[2018-06-18 13:56] LABS: BASOPHILS % (AUTO) 0.8 % (0-1); HEMATOCRIT 37.9 % (42.0-52.0); HEMOGLOBIN 13.1 g/dl (14.0-17.9); LYMPHOCYTES % (AUTO) 35.5 % (21-51); MEAN CORPUSCULAR HEMOGLOBIN 33.4 PG (27.0-31.0); MEAN CORPUSCULAR HGB CONC 34.7 g/dL (33.0-36.5); MEAN CORPUSCULAR VOLUME 96.2 FL (78-98); MEAN PLATELET VOLUME 8.3 FL (7.4-10.4); MONOCYTES % (AUTO) 12.1 % (2-12); NEUTROPHILS # (AUTO) 2.7 X10'3 (1.8-7.7); NEUTROPHILS % (AUTO) 51.1 % (42-75); RED BLOOD COUNT 3.94 X10'6 (4.70-6.10); WHITE BLOOD COUNT 5.2 X10'3 (4.5-11.0)
[2018-06-18] MEDS ORDERED: PHEN100C4 PO (16:06)
[2018-06-18 16:19] LABS: CLARITY,URINE CLEAR (Clear); COLOR,URINE YELLOW (Yellow); GLUCOSE, URINE NEGATIVE (Neg); KETONES,URINE TRACE mg/dl (Neg); LEUKOCYTE ESTERASE ,URINE NEGATIVE (Neg); NITRITES, URINE NEGATIVE (Neg); OCCULT BLOOD,URINE NEGATIVE (Neg); PROTEIN,URINE NEGATIVE (Neg); UROBILINOGEN,URINE 0.2 E.U/dL (0.2-1.0)
[2018-06-18 16:31] LABS: UA COLLECTION TYPE CLN CATCH MIDSTREAM
== END 2018-06-18 17:09 | disposition home or self-care (01) ==
LOC: ER 11:30
DX: S40.011A Contusion of right shoulder, initial encounter (principal); S20.221A Contusion of right back wall of thorax, initial encounter; G40.909 Epilepsy, unspecified, not intractable, without status epilepticus; G89.29 Other chronic pain; F17.210 Nicotine dependence, cigarettes, uncomplicated; F12.90 Cannabis use, unspecified, uncomplicated; Z91.013 Allergy to seafood; Z98.890 Other specified postprocedural states; Z86.711 Personal history of pulmonary embolism; W18.39XA Other fall on same level, initial encounter; Y93.89 Activity, other specified; Y92.89 Other specified places as the place of occurrence of the external cause; Y99.8 Other external cause status
CPT/HCPCS: 36415; 72146; 72148; 80053; 80185; 81003; 83690; 83735; 84100; 85025; 96365; 96366; 96368; 96375; 99284; J1165; J2405; J3475; J7030

== ENCOUNTER 2018-06-21 10:07 | Emergency (ER) | payer MEDICAID ==
[~2018-06-21] VITALS: Ht 180.3 cm; Wt 52.3 kg
[~2018-06-21 10:07] MED LIST changes: -NYST1000 PO; +PHEN100C4 PO
[2018-06-21 10:13] VITALS: BP 124/90
[2018-06-21 11:07] LABS: CLARITY,URINE CLEAR (Clear); COLOR,URINE YELLOW (Yellow); GLUCOSE, URINE NEGATIVE (Neg); KETONES,URINE TRACE mg/dl (Neg); LEUKOCYTE ESTERASE ,URINE NEGATIVE (Neg); NITRITES, URINE NEGATIVE (Neg); OCCULT BLOOD,URINE NEGATIVE (Neg); PROTEIN,URINE NEGATIVE (Neg); UROBILINOGEN,URINE 0.2 E.U/dL (0.2-1.0)
[2018-06-21 11:15] LABS: URINE AMPHETAMINE SCREEN NEGATIVE (Neg); URINE BARBITUATE SCREEN NEGATIVE (Neg); URINE BENZODIAZEPINES SCREEN NEGATIVE (Neg); URINE CANNABINOID SCREEN NEGATIVE (Neg); URINE COCAINE SCREEN NEGATIVE (Neg); URINE METHADONE SCREEN NEGATIVE (Neg); URINE OPIATE SCREEN NEGATIVE (Neg); URINE PHENCYCLIDINE SCREEN NEGATIVE (Neg)
[2018-06-21 11:21] LABS: UA COLLECTION TYPE CLN CATCH MIDSTREAM
[2018-06-21 12:02] LABS: BASOPHILS % (AUTO) 0.8 % (0-1); EOSINOPHILS % (AUTO) 0.5 % (0-6); HEMATOCRIT 35.3 % (42.0-52.0); HEMOGLOBIN 11.8 g/dl (14.0-17.9); LYMPHOCYTES # (AUTO) 1.6 X10'3 (1.1-4.8); LYMPHOCYTES % (AUTO) 39.1 % (21-51); MEAN CORPUSCULAR HEMOGLOBIN 32.5 PG (27.0-31.0); MEAN CORPUSCULAR HGB CONC 33.4 g/dL (33.0-36.5); MEAN CORPUSCULAR VOLUME 97.4 FL (78-98); MONOCYTES # (AUTO) 0.4 X10'3 (0-0.9); MONOCYTES % (AUTO) 9.4 % (2-12); NEUTROPHILS % (AUTO) 50.2 % (42-75); PLATELET COUNT 55 X10'3 (140-440); RED BLOOD COUNT 3.62 X10'6 (4.70-6.10); RED CELL DISTRIBUTION WIDTH 15.1 % (11.5-14.5); WHITE BLOOD COUNT 4.1 X10'3 (4.5-11.0)
[2018-06-21 12:12] LABS: INR 1.1 INR; PARTIAL THROMBOPLASTIN TIME 29 SECONDS (22-32)
[2018-06-21 12:16] LABS: ALANINE AMINOTRANSFERASE 58 U/L (12-78); ALBUMIN 2.7 G/DL (3.4-5.0); ALBUMIN/GLOBULIN RATIO 0.7 (1.1-1.5); ALKALINE PHOSPHATASE 128 IU/L (46-116); ANION GAP 14 (8-16); ASPARTATE AMINO TRANSFERASE 175 U/L (10-37); BILIRUBIN,TOTAL 0.6 MG/DL (0.1-1.0); BLOOD UREA NITROGEN 2 MG/DL (7-18); BUN/CREATININE RATIO 4.3 (5.4-32.0); CHLORIDE 98 MMOL/L (99-107); CREATININE 0.46 MG/DL (0.60-1.10); GLUCOSE 79 MG/DL (70-104); LIPASE 123 U/L (73-393); POTASSIUM 3.4 MMOL/L (3.5-5.1); SODIUM 136 MMOL/L (135-145); TOTAL CARBON DIOXIDE 24.5 MMOL/L (24-32); TOTAL PROTEIN 6.6 G/DL (6.4-8.2); eGFR > 90 ML/MIN
[2018-06-21] MEDS ORDERED: levetiracetam 250mg tablet PO ONE ×2 (12:20→20:00)
[2018-06-21 12:26] LABS: ETHANOL 0.308 GM/DL (0.0-0.010)
[2018-06-21 12:40] LABS: PHENYTOIN (DILANTIN) 21.8 UG/ML (10.0-20.0)
[2018-06-22] MEDS ORDERED: phenytoin sod ER 100mg capsule PO ONE (08:00)
== END 2018-06-21 13:31 | disposition home or self-care (01) ==
LOC: ER 10:08
DX: S01.111A Laceration without foreign body of right eyelid and periocular area, initial encounter (principal); F10.929 Alcohol use, unspecified with intoxication, unspecified; Z86.718 Personal history of other venous thrombosis and embolism; G89.29 Other chronic pain; M54.2 Cervicalgia; F12.90 Cannabis use, unspecified, uncomplicated; Z79.899 Other long term (current) drug therapy; Y90.9 Presence of alcohol in blood, level not specified; W19.XXXA Unspecified fall, initial encounter; Y93.89 Activity, other specified; Y92.89 Other specified places as the place of occurrence of the external cause; Y99.8 Other external cause status
CPT/HCPCS: 36415; 70450; 71045; 72070; 72100; 72125; 80053; 80185; 80305; 80320; 81003; 83690; 85025; 85610; 85730; 99284

== ENCOUNTER 2019-01-02 13:52 | Outpatient (CLI) | payer MEDICAID ==
[~2019-01-02 13:52] MED LIST changes: -ALBU6.7H INH; +ALBU6.7H9 INH
== END 2019-01-02 23:59 | disposition home or self-care (01) ==
LOC: RAD 13:52
PROVIDERS: ATTEND Psychiatry & Neurology Neurology
DX: G40.909 Epilepsy, unspecified, not intractable, without status epilepticus (principal)
CPT/HCPCS: 95816

== ENCOUNTER 2020-09-14 20:12 | Inpatient (IN) | payer MEDICAID ==
[~2020-09-14] VITALS: Ht 185.4 cm; Wt 65.0 kg
--- NOTE | 2020-09-14 20:21 | NUR ---
pt bib ems from home where he lives alone.family checked on him earlier today and refused to go to the hospital when they asked him to. he is aloc and hypotensive. pt has hx of etoh chronic and liver failure. pt drinks "all day long" per family. pt has hx of severe seizures. pt is jaundiced and has abdominal distention.
--- NOTE | 2020-09-14 20:29 | NUR ---
RESPIRATORY CALLED TO ROOM 2 2027 IN ROOM CURRENTLY Addendum: 09/14/20 at 2034 by TEAGAN WAS FOR DIFFERENT BED
[2020-09-14] MEDS ORDERED: piperacillin/tazo 3.375gm/50ml 50 ML IV ONE (20:35)
[2020-09-14] MEDS ORDERED: normal saline 1000ML IV soln IVB ONE (20:35)
--- NOTE | 2020-09-14 20:52 | NUR ---
Pts family now at bedside. They reports a failure to thrive. They found him earlier today at his home "covered in poo and pee", they tried to get Pt to go to hospital earlier, reported was an AMA from the field. Pt is a&ox3, but is slow to respond to questioning. Temp go in place and urine sample collected. 2nd set blood cultures collected.. 2nd liter infused and bp remains low, 77/45. Pt now in CT (head and abdomen).
[2020-09-14 20:57] LABS: BASOPHILS # (AUTO) 0.1 X10'3 (0-0.2); BASOPHILS % (AUTO) 0.8 % (0-1); EOSINOPHILS % (AUTO) 0 % (0-6); HEMATOCRIT 22.4 % (42.0-52.0); HEMOGLOBIN 7.5 g/dl (14.0-17.9); LYMPHOCYTES # (AUTO) 1.3 X10'3 (1.1-4.8); LYMPHOCYTES % (AUTO) 15.5 % (21-51); MEAN CORPUSCULAR HEMOGLOBIN 35.6 PG (27.0-31.0); MEAN CORPUSCULAR HGB CONC 33.7 g/dL (33.0-36.5); MEAN CORPUSCULAR VOLUME 105.6 FL (78-98); MEAN PLATELET VOLUME 9.9 FL (7.4-10.4); MONOCYTES # (AUTO) 1.2 X10'3 (0-0.9); MONOCYTES % (AUTO) 13.6 % (2-12); NEUTROPHILS # (AUTO) 6.1 X10'3 (1.8-7.7); NEUTROPHILS % (AUTO) 70.1 % (42-75); PLATELET COUNT 111 X10'3 (140-440); RED BLOOD COUNT 2.12 X10'6 (4.70-6.10); RED CELL DISTRIBUTION WIDTH 16.5 % (11.5-14.5); WHITE BLOOD COUNT 8.7 X10'3 (4.5-11.0)
[2020-09-14 21:02] LABS: ALANINE AMINOTRANSFERASE 55 U/L (12-78); ALBUMIN 1.8 G/DL (3.4-5.0); ALKALINE PHOSPHATASE 59 IU/L (46-116); ASPARTATE AMINO TRANSFERASE 275 U/L (10-37); BLOOD UREA NITROGEN 9 MG/DL (7-18); CALCIUM 6.5 MG/DL (8.5-10.1); CREATININE 0.82 MG/DL (0.60-1.10); ETHANOL 0.118 GM/DL (0.0-0.010); GLUCOSE 64 MG/DL (70-104); TROPONIN I < 0.04 NG/ML (0.0-0.05); eGFR > 90 ML/MIN
[2020-09-14 21:04] LABS: TOTAL CARBON DIOXIDE 11.1 MMOL/L (24-32)
--- NOTE | 2020-09-14 21:09 | NUR ---
PT RETURNED FROM CT SCAN WITH BP 68/50 AND HR 48. PT PLACED IN TRENDELENBERG AND DR. HELLER UPDATED. PTS PULSE ASYSTOLE AND CPR STARTED, RN Ashlyn AZUL, WITNESSING EVENT AND CALLING CODE. STAFF AND DR. GALLAGHER AT BEDSIDE. CODE STARTED AT 2109. 2109 CPR STARTED 2111 EPII 2114 HR 66, BP 144/92 FAMILY AT BEDSIDE FOR CODE AND TOLD DR. HELLER THEY WANT COMFORT CARE AND NO FURTHER CPR.
[2020-09-14 21:22] LABS: CLARITY,URINE SLIGHTLY CLOUDY (Clear); COLOR,URINE AMBER (Yellow); GLUCOSE, URINE NEGATIVE (Neg); KETONES,URINE 15 mg/dl (Neg); LEUKOCYTE ESTERASE ,URINE NEGATIVE (Neg); OCCULT BLOOD,URINE LARGE (Neg); PH,URINE 5.5 (4.8-8.0); PROTEIN,URINE 30 mg/dl (Neg); UROBILINOGEN,URINE >=8.0 E.U/dL (0.2-1.0)
--- NOTE | 2020-09-14 21:22 | NUR ---
SISTER KENDALL AT BEDSIDE WITH HER FIANCE. PT ALERT WITH EYES OPEN. HR 87, AFIB.
[2020-09-14] MEDS ORDERED: morphine 4 MG/ML inj SYRINge IV PRN (21:25)
[2020-09-14] MEDS ORDERED: ondansetron/PF 4mg/2ml inj IV ONE (21:25)
[2020-09-14 21:26] LABS: URINE AMPHETAMINE SCREEN NEGATIVE (Neg); URINE BARBITUATE SCREEN NEGATIVE (Neg); URINE BENZODIAZEPINES SCREEN NEGATIVE (Neg); URINE CANNABINOID SCREEN NEGATIVE (Neg); URINE COCAINE SCREEN NEGATIVE (Neg); URINE METHADONE SCREEN NEGATIVE (Neg); URINE OPIATE SCREEN NEGATIVE (Neg); URINE PHENCYCLIDINE SCREEN NEGATIVE (Neg)
--- NOTE | 2020-09-14 21:38 | NUR ---
JOSE ALFREDO Sotelo, DR. HELLER UPDATED.
[2020-09-14 21:41] LABS: UA COLLECTION TYPE FOLEY CATH
[2020-09-14 21:47] LABS: WBC,URINE 0-4 /HPF (0-4)
--- NOTE | 2020-09-14 21:47 | NUR ---
dr josue made aware of pt bg of 65 and bp of 66/40. no interventions ordered by dr josue at this time. comfort measures in place.
[2020-09-14 21:48] LABS: BACTERIA,URINE NONE SEEN /HPF (Neg); RBC,URINE 0-2 /HPF (0-2); SQUAMOUS EPITHELIAL CELL,UR FEW /LPF (FEW)
[2020-09-14 22:11] LABS: ANION GAP 21 (8-16); CHLORIDE 84 MMOL/L (99-107)
[2020-09-14 22:12] LABS: POTASSIUM 4.6 MMOL/L (3.5-5.1)
--- NOTE | 2020-09-14 22:12 | NUR ---
STEP ELISA SHARP AT BEDSIDE. DR. HELLER AT BEDSIDE AND REPORTS THAT PT TO HAVE THE LEVOPHED AND CENTRAL LINE PLACED.
[2020-09-14 22:14] LABS: ALBUMIN/GLOBULIN RATIO 0.5 (1.1-1.5); TOTAL PROTEIN 5.8 G/DL (6.4-8.2)
[2020-09-14 22:16] LABS: SODIUM 116 MMOL/L (135-145)
[2020-09-14] MEDS ORDERED: dextrose 50%-water 50ml dispensing syringe IV ONE (22:21)
--- NOTE | 2020-09-14 22:23 | NUR ---
UPDATED THAT PTS NA 116. DR. HELLER AT BEDSIDE PREPARING TO PLACE CENTRAL LINE AND PTS HR DROPPING FROM 60'S TO ASYSTOLE. CODE CALLED AND CPR STARTED. PT GIVEN 2 ROUNDS OF EPI 2232 ROSC 70'S SINUS RHYTHM W/ BP 145/88. PT HAD BEEN RECEIVING VERSED GTT AT 0.2 MCG/KG/MIN VIA PIV IN L UPPER ARM 22G, DOSE INCREASED TO 0.4. [address] HELLER NOW PLACING CENTRAL LINE.
[2020-09-14] MEDS ORDERED: midazolam 100mg in NS 100ml 100 ML IV PRN (22:50)
[2020-09-14] MEDS ORDERED: midazolam 1 mg/ML 2ml injection IV PRN (22:50)
[2020-09-14] MEDS ORDERED: FENTANYL-0.9 % NACL/PF 100 ML IV PRN (22:50)
--- NOTE | 2020-09-14 22:52 | NUR ---
VERBAL FOR VERSED AND FENTANYL GTTS FROM DR. HELLER.
--- NOTE | 2020-09-14 23:03 | NUR ---
PAGED DR DE OLIVEIRA FOR CANCEL OF BED ADMIT PATIENT IS GOING TO THE UNIT
[2020-09-14] MEDS: NORepinephrine 8mg/ 250ml NS 250 ML IV PRN (23:10)
[2020-09-14 23:27] LABS: ABG BASE EXCESS -22.9 mmol/L (-2.0-2.0); ABG HCO3 7.5 mmol/L (22.0-26.0); ABG OXYGEN SATURATION 93.1 % (94-97); ABG PCO2 (T) 28.6 mmHg (35.0-48.0); ABG PO2 (T) 86.6 mmHg (75.0-100.0); ALLEN'S TEST POSITIVE; FCOHb 0.8 % (0.0-3.9); FMetHb 0.4 % (0.0-1.5); PEEP 5 cm H2O; RESPIRATORY RATE 18 b/min; TIDAL VOLUME 450 mL
--- NOTE | 2020-09-14 23:32 | NUR ---
DR. MORROW, ICU TELE MD, INTERVIEWING MYSELF FOR ADMISSION. PT WILL LIKELY BE ADMISSION HOLD IN ED THROUGH THE NIGHT. MD TO CONTINUE VERSED AND FENTANYL GTT AND LEVOPHED. GOAL IS SYSTOLIC BP ABOVE 80.ABG RESULTS BACK BICARB 7.5 PH 6.98 MACKENZIE 32.6 O2 103 RT LAM DECREASED FIO2 TO 70%.
[2020-09-14] MEDS ORDERED: sodium bicarbonate (8.4%) inj. 150 MEQ in dextrose 5%-water 1,000 ML IV SCH (23:40)
[2020-09-14] MEDS ORDERED: sodium bicarbonate (8.4%) inj. 50 MEQ in dextrose 5%-water 1,000 ML IV SCH (23:40)
[2020-09-14] MEDS ORDERED: vancomycin/NS 1 GM ADD-VANTAGE 250 ML IV ONE (23:40)
[2020-09-15] VITALS (9 sets, daily range): BP systolic 0–126; BP diastolic 0–71
[2020-09-15] MEDS ORDERED: sodium bicarbonate (8.4%) 1 mEq/ml syringe IV ONE (00:05)
[2020-09-15] MEDS: vasopressin inj. 40 UNIT in normal saline 50ml IV soln 38 ML IV SCH ×2 (00:46→10:13)
--- NOTE | 2020-09-15 00:48 | NUR ---
PT GOT IV PUSH OF BICARB WELL A BICARB DRIP DUE TO ABG RESULTS SHOWING METABOLIC ACIDOSIS. VASOPRESSIN ALSO STARTED IV DRIP
[2020-09-15] MEDS: pantoprazole 40 MG vial IV SCH ×2 (01:19→10:18)
[2020-09-15] MEDS: NORepinephrine 8mg/ 250ml NS 250 ML IV PRN ×3 (01:26→09:40)
--- NOTE | 2020-09-15 02:03 | NUR ---
called the paper sorter, dr. lanier. left a message for call back about lab results.
[2020-09-15] MEDS: hydrocortisone sod succ/PF 100mg/2ml inj. IV SCH ×2 (02:07→10:18)
--- NOTE | 2020-09-15 02:13 | NUR ---
Dr. lanier called to update: 2 hr lactic now 12.0, up from 9.9; urine output 200 ccs total. No new orders received.
[2020-09-15 02:53] LABS: HEMOGLOBIN 9.5 g/dl (14.0-17.9); MEAN CORPUSCULAR HGB CONC 32.7 g/dL (33.0-36.5); MEAN PLATELET VOLUME 9.5 FL (7.4-10.4); MONOCYTES # (AUTO) 1.8 X10'3 (0-0.9); RED BLOOD COUNT 2.74 X10'6 (4.70-6.10)
[2020-09-15 02:54] LABS: BASOPHILS # (AUTO) 0.1 X10'3 (0-0.2); BASOPHILS % (AUTO) 0.7 % (0-1); EOSINOPHILS % (AUTO) 0.1 % (0-6); MEAN CORPUSCULAR HEMOGLOBIN 34.7 PG (27.0-31.0); MONOCYTES % (AUTO) 10.6 % (2-12); NEUTROPHILS % (AUTO) 76.6 % (42-75); PLATELET COUNT 153 X10'3 (140-440)
[2020-09-15] MEDS ORDERED: PHEN50TA2 PO (03:00)
[2020-09-15] MEDS ORDERED: PROM12.512 PO (03:00)
[2020-09-15] MEDS ORDERED: VENL75CA61 PO (03:00)
[2020-09-15] MEDS ORDERED: ESCI5TAB PO (03:01)
[2020-09-15] MEDS ORDERED: RISP0.5T74 PO (03:02)
[2020-09-15] MEDS ORDERED: UNABLE TO OBTAIN (03:04)
--- NOTE | 2020-09-15 03:13 | NUR ---
VANCOMYCIN IVPB INFUSED. VET SETTING FIO2 70%, RATE 18, PEEP 5. BP 99/68.REMAINS ON VASOPRESSIN, LEVOPHED, FENT AND VERSED GTTS, AND BICARB GTT.
[2020-09-15 04:12] LABS: NEUTROPHILS % (MANUAL) 69 % (42-75); TOTAL CELLS COUNTED 100
[2020-09-15 04:13] LABS: BANDS% (MANUAL) 14 % (0-10); LYMPHOCYTES % (MANUAL) 8 % (21-51); METAMYLEOCYTES% (MANUAL) 5 % (0-0); MONOCYTES % (MANUAL) 4 % (2-12); PLATELET ESTIMATE NORMAL
[2020-09-15 04:14] LABS: ANISOCYTOSIS 1+; BURR CELLS 2+
[2020-09-15 04:36] LABS: ABG BASE EXCESS -18.2 mmol/L (-2.0-2.0); ABG OXYGEN SATURATION 93.5 % (94-97); ABG PCO2 (T) 30.4 mmHg (35.0-48.0); ABG PO2 (T) 84.4 mmHg (75.0-100.0); ALLEN'S TEST POSITIVE; FCOHb 0.1 % (0.0-3.9); FMetHb 0.2 % (0.0-1.5); FO2Hb 93.2 % (94-97); PATIENT TEMPERATURE 35.5; PEEP 5 cm H2O; RESPIRATORY RATE 18 b/min; TIDAL VOLUME 450 mL; TOTAL HEMOGLOBIN 10.6 G/dl (14.0-18.0)
--- NOTE | 2020-09-15 04:44 | NUR ---
CALLED THE COMPUTER SYSTEMS CONSULTANT DR. LUNSFORD TO UPDATE HIM ON PT CONDITION AND PH. ALSO ASKED AND GOT VERBAL CONFIRMATION TO DRAW A LA FOR OUR PT.
[2020-09-15 05:48] LABS: ALANINE AMINOTRANSFERASE 298 U/L (12-78); ALBUMIN 1.7 G/DL (3.4-5.0); ALKALINE PHOSPHATASE 71 IU/L (46-116); BILIRUBIN,TOTAL 6.9 MG/DL (0.1-1.0); BLOOD UREA NITROGEN 10 MG/DL (7-18); CREATININE 1.11 MG/DL (0.60-1.10); GLUCOSE 125 MG/DL (70-104); eGFR 72 ML/MIN
--- NOTE | 2020-09-15 05:49 | NUR ---
DR. QUISPE CALLED TO UPDATE LACTIC NOW 13.1. ALSO UPDATED THAT TOTAL URINE OUTPUT THE PAST 8 HRS (SINCE PT HAS BEEN HERE) IS A TOTAL OF 150 CCS'. NO NEW ORDERS RECEIVED.
[2020-09-15 05:52] LABS: CALCIUM 5.9 MG/DL (8.5-10.1); TOTAL CARBON DIOXIDE 11.6 MMOL/L (24-32)
[2020-09-15 05:53] LABS: ANION GAP 24 (8-16); CHLORIDE 86 MMOL/L (99-107); SODIUM 122 MMOL/L (135-145)
[2020-09-15 05:55] LABS: ALBUMIN/GLOBULIN RATIO 0.4 (1.1-1.5); ASPARTATE AMINO TRANSFERASE 1898 U/L (10-37); POTASSIUM 4.8 MMOL/L (3.5-5.1); TOTAL PROTEIN 5.9 G/DL (6.4-8.2)
[2020-09-15] MEDS ORDERED: piperacillin/tazo 3.375gm/50ml 50 ML IV SCH (08:00)
[2020-09-15] MEDS ORDERED: heparin, porcine 5000 units/ml vial SQ SCH (08:00)
[2020-09-15] MEDS ORDERED: epiNEPHrine inj 5 MG in normal saline 250ml IV soln 245 ML IV PRN (09:10)
[2020-09-15] MEDS ORDERED: albumin (Human) 5% 250ml 1,000 ML IV ONE (09:20)
[2020-09-15 11:20] LABS: ABG BASE EXCESS -20.9 mmol/L (-2.0-2.0); ABG HCO3 9.4 mmol/L (22.0-26.0); ABG OXYGEN SATURATION 58.3 % (94-97); ABG PCO2 (T) 36.6 mmHg (35.0-48.0); ABG PO2 (T) 37.7 mmHg (75.0-100.0); FCOHb 0.1 % (0.0-3.9); FMetHb 0.4 % (0.0-1.5); PATIENT TEMPERATURE 35.1; PEEP 5 cm H2O; RESPIRATORY RATE 181 b/min; TIDAL VOLUME 450 mL; TOTAL HEMOGLOBIN 8.8 G/dl (14.0-18.0)
[2020-09-15] MEDS ORDERED: vancomycin/NS 1 GM ADD-VANTAGE 250 ML IV SCH (11:28)
[2020-09-15] MEDS ORDERED: acetaminophen 325mg tablet PO PRN (11:45)
[2020-09-15] MEDS ORDERED: LORazepam 2 mg/ml vial IV PRN (11:45)
[2020-09-15] MEDS ORDERED: morphine 10mg/ml inj. IV PRN (11:45)
--- NOTE | 2020-09-15 11:47 | NUR ---
Noted pt has been made DNR w/ comfort care. Will continue to follow. Rec: 1. bowel care per rx Addendum: 09/15/20 at [address] Amended: Links added.
--- NOTE | 2020-09-15 13:23 | NUR ---
0750 aRRIVED TO ICU ROOM 2013 VIA [facility] tx to bed , report received from Geoff from ED. Placed on monitors .
[2020-09-16] MEDS ORDERED: VANCOMYCIN LEVEL IV ONE (10:30)
== END 2020-09-15 14:30 | DRG 720 ==
LOC: ER 20:13 → ED HOLD 23:39 → CICU 2S 09-15 07:56
PROVIDERS: ADMIT Internal Medicine; ATTEND Internal Medicine
PROC: 5A1935Z Respiratory Ventilation, Less than 24 Consecutive Hours (ICD-10-PCS; principal; 2020-09-14)
PROC: 5A12012 Performance of Cardiac Output, Single, Manual (ICD-10-PCS; 2020-09-14)
PROC: 0BH17EZ Insertion of Endotracheal Airway into Trachea, Via Natural or Artificial Opening (ICD-10-PCS; 2020-09-14)
PROC: 02HV33Z Insertion of Infusion Device into Superior Vena Cava, Percutaneous Approach (ICD-10-PCS; 2020-09-14)
DX: A41.9 Sepsis, unspecified organism (principal); I46.9 Cardiac arrest, cause unspecified; J69.0 Pneumonitis due to inhalation of food and vomit; R65.21 Severe sepsis with septic shock; J96.01 Acute respiratory failure with hypoxia; J96.02 Acute respiratory failure with hypercapnia; E87.2 Acidosis; K72.90 Hepatic failure, unspecified without coma; E87.1 Hypo-osmolality and hyponatremia; F03.90 Unspecified dementia, unspecified severity, without behavioral disturbance, psychotic disturbance, mood disturbance, and anxiety; K70.31 Alcoholic cirrhosis of liver with ascites; N19 Unspecified kidney failure; Z60.2 Problems related to living alone; F12.90 Cannabis use, unspecified, uncomplicated; F41.9 Anxiety disorder, unspecified; G89.29 Other chronic pain; Z51.5 Encounter for palliative care; Z66 Do not resuscitate; Z86.711 Personal history of pulmonary embolism; Z91.013 Allergy to seafood; Z79.899 Other long term (current) drug therapy
CPT/HCPCS: 36415; 36600; 70450; 71045; 74176; 80053; 80305; 80320; 81001; 82140; 82803; 82948; 83605; 83880; 84145; 84484; 85007; 85018; 85025; 87040; 87070; 92950; 93005; 94002; 94003; 94760; 94799; 96365; 96375; 99291; C9113; G0378; J1720; J2270; J2405; J2543; J3010; J3370; J3490; J7030; P9045